=== PATIENT | female | born 1990 | race Caucasian/White ===

== ENCOUNTER 2020-06-22 08:33 | Emergency (ER) | payer SELFPAY ==
[2020-06-22] VITALS (8 sets, daily range): BP systolic 112–130; BP diastolic 72–87; PULSE 78–106; RESP 14–23; TEMP 36.9; O2SAT 97–100; BMI 18.8
--- NOTE | 2020-06-22 08:34 | ECG_ITS ---
[facility] Test Date: 2020-06-22 Pat Name: Chantal Chand Department: Room: Gender: Female Bioinformatics Assistant: NAZIA DESAIB: 1990 Requested By: Lily Sarmiento Order Number: [id number] James MD: Warren Rosenberg M.D. Measurements Intervals Burns Rate: 101 P: 30 MA: 109 QRS: 89 QRSD: 77 T: 47 QT: 306 QTc: 398 Interpretive Statements SINUS TACHYCARDIA WITH SHORT MA INTERVAL ABNORMAL RHYTHM ECG No previous ECG available for comparison Electronically Signed On 06-22-2020 16:43:34 SAMPLE WORKER by Warren Rosenberg M.D. [id number]
--- NOTE | 2020-06-22 08:35 | XR_ITS ---
WS: [id number] XR chest 1V portable [id number] REASON FOR EXAM: syncope FINDINGS: The heart and mediastinum are within normal limits. No active pulmonary parenchymal or pleural disease is noted. The bony thorax is intact. XR/XR chest 1V portable [id number] IMPRESSION: No acute chest abnormality.
--- NOTE | 2020-06-22 08:50 | W.ED.CHESTPA ---
HPI - Chest Pain General: Chief Complaint: Chest Pain Stated Complaint: chest pressure Time Seen by Provider: 06/22/20 08:36 Source: patient Mode of arrival: ambulatory Limitations: language barrier (Romanian) History of Present Illness: HPI narrative: 30-year-old female patient presents to the emergency department with, chest pressure states started Monday night, 06/20/2020 then went away, she reports spent the day yesterday shopping with return of symptoms last night. She denies fever cough or vomiting. Reports chills, denies exposure to individuals with recent illness. She reports has never experienced symptoms as today. She reports is constant, took herbal antianxiety pill will last night. She reports her grandfather gave it to her as it helps him. She reports relieved some of the pressure for a short time. She reports previous episode of similar symptoms when she had the stomach flu several years ago. She reports only lasted 1 day. LMP - current MD complaint: chest heaviness (pressure) Onset (ago): day(s) (2) Timing of current episode: episodic and increasing Prior episodes: No Onset: during rest Pain location: other (central) Pain radiation: none Severity: moderate Pain scale (0-10): 6 Quality: heaviness and other (pressure) Relieving factors: nothing Exacerbating factors: nothing Associated symptoms: Reports no associated symptoms, dyspnea and palpitations; Deny abdominal pain, diaphoresis, fever(s), nausea or vomiting Treatment prior to arrival: none Review of Systems General: Reports: 10 or more systems reviewed and unremarkable except in HPI and below Const: Reports: chills, fatigue and malaise; Denies: fever(s), body aches or diaphoresis Eyes: Denies: blurry vision or eye redness ENMT: Denies: throat pain, swelling of lips/tongue, dental pain, change in hearing or disequilibrium Card: Reports: chest pain, palpitations, lightheadedness (with ambulation) and dyspnea on exertion; Denies: irregular heart rhythm or swelling of feet/ankles Resp: Reports: dyspnea; Denies: productive cough, non-productive cough, wheezing, pain on inspiration or chest congestion GI: Denies: abdominal pain, nausea or vomiting : Denies: difficulty voiding or dysuria Musc: Denies: back pain Skin/Breast: Denies: rash or pruritus Neuro: Denies: headache(s), weakness in extremities or behavioral changes Psych: Reports: anxiety; Denies: depression or change in appetite Erickson/Lymph: Denies: easy bruising Physical Exam Const: COMMON NORMALS: no acute distress, patient oriented x3, healthy appearing and alert GENERAL APPEARANCE: cooperative, comfortable and well hydrated HENMT: COMMON NORMALS: normocephalic, Normal external nose present and moist oral mucous membranes HEAD & SCALP: normocephalic NOSE: Normal external nose present Eye: COMMON NORMALS: Equal, round and reactive pupils present and EOMs intact bilaterally GENERAL EYE: appearance normal, both eyes and all related structures PUPIL: Yes Equal, round and reactive pupils present Neck/C-Spine: COMMON NORMALS: full ROM and no lymphadenopathy GENERAL: Yes normal visual inspection and Yes trachea midline CERVICAL SPINE: Yes cervical ROM normal Lymph: LYMPHATIC: no lymphadenopathy noted Chest: COMMONS NORMALS: normal inspection of the chest Resp: COMMON NORMALS: normal respiratory effort and clear to auscultation bilaterally AUSCULTATION: clear to auscultation bilaterally Cardio: COMMON NORMALS: regular rhythm, S1 normal heart sound present and S2 normal heart sound present RHYTHM: regular rhythm HEART SOUNDS: S1 normal heart sound present and S2 normal heart sound present GI: COMMON NORMALS: Soft to palpation and non-tender INSPECTION: Yes normal to inspection PALPATION: Yes Soft to palpation : COMMON NORMALS: Yes no CVA tenderness BLADDER/KIDNEY EXAM: Yes no CVA tenderness Back/Pelvis: COMMON NORMALS: no CVA tenderness and thoracic and lumbar spine normal to inspection Extremity: COMMON NORMALS: normal to inspection and capillary refill normal Neuro: COMMON NORMALS: patient oriented x3 and no focal motor deficits SENSORIUM/ORIENTATION: Yes alert Psych: COMMON NORMALS: mental status grossly normal, Normal thought process present and cooperative ACTIVITY/MOTOR BEHAVIOR: Yes appropriate eye contact THOUGHT PROCESS: Normal thought process present Skin: COMMON NORMALS: no rashes or lesions noted and turgor normal GENERAL SKIN EXAM: no rashes or lesions noted and turgor normal Course ED course: 30-year-old female patient presents to the emergency department with complaints of chest pressure x24 hours. Cardiac work-up without abnormalities, EKG without abnormalities, CT chest with contrast without acute findings. Patient received Tylenol and Pepcid during her stay. She reports symptoms of chest pressure resolved, reports feeling better. ESR CRP negative, she did not experience cough or congestion/nausea, Covid symptoms. Will place on Pepcid twice daily, treat urinary tract infection, patient was advised to follow-up with a primary care physician next week to ensure she is improving. Consult to social welfare research worker to help with process. Agrees to return to emergency department if she develops worsening symptoms such as chest pain, difficulty breathing or other concerning symptoms. Patient was placed on collaborative physician during her stay, sinus rhythm with oxygen saturation 97-100%. 1 L normal saline bolus administered, heart rate did drop 15 points. Positive orthostatics prior to IV bolus. Advised to push fluids at home and rest. Vital Signs: Vital signs: Vital Signs Temperature 98.5 F 06/22/20 08:46 Pulse Rate 85 06/22/20 12:59 Respiratory Rate 18 06/22/20 12:59 Blood Pressure 123/74 06/22/20 12:59 Pulse Oximetry 97 06/22/20 12:59 MDM - Chest Pain Differential Diagnosis: Cardiac arrest differential diagnosis: Likely acute massive pulmonary embolism and acute myocardial infarction Lab Data: Labs: Lab Results 06/22/20 06/22/20 06/22/20 Range/Units 09:01 09:01 09:01 WBC 9.0 (4.0-10.0) 10^3/ uL RBC 5.43 H (4.1-5.3) 10^6/u L Hgb 14.0 (11.5-15.3) g/dL Hct 44.8 (37.0-47.0) % MCV 82.5 (81-99) fL MCH 25.8 L (28.0-34.0) pg MCHC 31.3 (30.0-36.0) g/dL RDW 15.1 (12.1-15.1) % Plt Count 284 (130-400) 10^3/c mm MPV 10.5 H (7.4-10.4) fL Neut % (Auto) 78.7 % Lymph % (Auto) 10.9 % Ritchie % (Auto) 9.9 % Eos % (Auto) 0.1 % Baso % (Auto) 0.2 % Neut # (Auto) 7.08 (1.8-7.7) 10^3/u L Lymph # (Auto) 1.0 (0.8-4.8) 10^3/u L Ritchie # (Auto) 0.9 (0.2-0.9) 10^3/u L Eos # (Auto) 0.0 (0.0-0.8) 10^3/u L Baso # (Auto) 0.0 (0.0-0.1) 10^3/u L Nucleated RBC % (a uto) 0 % Nucleated RBCs # 0.0 /100WBC ESR (0-15) mm/hr D-Dimer 0.62 H (0-0.59) ug/mIFE U Sodium 140 (136-145) mmol/L Potassium 3.8 (3.5-5.1) mmol/L Chloride 104 (98-107) mmol/L Carbon Dioxide 25 (22-29) mmol/L Anion Gap 14.8 (5-19) BUN 10 (6-20) mg/dL Creatinine 0.7 (0.5-0.9) mg/dL GFR Calculation 99.6 (90-130) mL/min Glucose 103 (65-115) mg/dL Calculated Osmolal ity 289 (285-295) mOsm/k g Calcium 9.4 (8.5-10.5) mg/dL Total Bilirubin 0.3 (0.15-1.2) mg/dL AST 17 (0-32) U/L ALT 12 (0-33) U/L Alkaline Phosphata se 61 (35-105) IU/L Troponin T Gen 5 n g/L (0-10) ng/L C-Reactive Protein 0.8 (0.0-4.9) mg/L Total Protein 7.7 (6.6-8.7) g/dL Albumin 4.6 (3.5-5.2) g/dL Globulin 3.1 (1.3-4.6) g/dL HCG, Qual (Negative) Urine Color (Yellow) Urine Appearance (CLEAR) Urine pH (5-7) Ur Specific Gravit y (1.005-1.030) Urine Protein (Negative) Urine Glucose (UA) (Normal) Urine Ketones (Negative) Urine Blood (Negative) Urine Nitrate (Negative) Urine Bilirubin (Negative) Urine Urobilinogen (Negative) mg/dL Ur Leukocyte Anastasia ase (Negative) Urine RBC (0-2) /hpf Urine WBC (0-5) /hpf Ur Squamous Epith Cells (0-5) /hpf Amorphous Sediment Urine Bacteria (NONE) /hpf 06/22/20 06/22/20 06/22/20 Range/Units 09:01 09:01 09:01 WBC (4.0-10.0) 10^3/ uL RBC (4.1-5.3) 10^6/u L Hgb (11.5-15.3) g/dL Hct (37.0-47.0) % MCV (81-99) fL MCH (28.0-34.0) pg MCHC (30.0-36.0) g/dL RDW (12.1-15.1) % Plt Count (130-400) 10^3/c mm MPV (7.4-10.4) fL Neut % (Auto) % Lymph % (Auto) % Ritchie % (Auto) % Eos % (Auto) % Baso % (Auto) % Neut # (Auto) (1.8-7.7) 10^3/u L Lymph # (Auto) (0.8-4.8) 10^3/u L Ritchie # (Auto) (0.2-0.9) 10^3/u L Eos # (Auto) (0.0-0.8) 10^3/u L Baso # (Auto) (0.0-0.1) 10^3/u L Nucleated RBC % (a uto) % Nucleated RBCs # /100WBC ESR 14 (0-15) mm/hr D-Dimer (0-0.59) ug/mIFE U Sodium (136-145) mmol/L Potassium (3.5-5.1) mmol/L Chloride (98-107) mmol/L Carbon Dioxide (22-29) mmol/L Anion Gap (5-19) BUN (6-20) mg/dL Creatinine (0.5-0.9) mg/dL GFR Calculation (90-130) mL/min Glucose (65-115) mg/dL Calculated Osmolal ity (285-295) mOsm/k g Calcium (8.5-10.5) mg/dL Total Bilirubin (0.15-1.2) mg/dL AST (0-32) U/L ALT (0-33) U/L Alkaline Phosphata se (35-105) IU/L Troponin T Gen 5 n g/L 6 (0-10) ng/L C-Reactive Protein (0.0-4.9) mg/L Total Protein (6.6-8.7) g/dL Albumin (3.5-5.2) g/dL Globulin (1.3-4.6) g/dL HCG, Qual Negative (Negative) Urine Color (Yellow) Urine Appearance (CLEAR) Urine pH (5-7) Ur Specific Gravit y (1.005-1.030) Urine Protein (Negative) Urine Glucose (UA) (Normal) Urine Ketones (Negative) Urine Blood (Negative) Urine Nitrate (Negative) Urine Bilirubin (Negative) Urine Urobilinogen (Negative) mg/dL Ur Leukocyte Anastasia ase (Negative) Urine RBC (0-2) /hpf Urine WBC (0-5) /hpf Ur Squamous Epith Cells (0-5) /hpf Amorphous Sediment Urine Bacteria (NONE) /hpf 11//20 Range/Units 10:00 WBC (4.0-10.0) 10^3/ uL RBC (4.1-5.3) 10^6/u L Hgb (11.5-15.3) g/dL Hct (37.0-47.0) % MCV (81-99) fL MCH (28.0-34.0) pg MCHC (30.0-36.0) g/dL RDW (12.1-15.1) % Plt Count (130-400) 10^3/c mm MPV (7.4-10.4) fL Neut % (Auto) % Lymph % (Auto) % Ritchie % (Auto) % Eos % (Auto) % Baso % (Auto) % Neut # (Auto) (1.8-7.7) 10^3/u L Lymph # (Auto) (0.8-4.8) 10^3/u L Ritchie # (Auto) (0.2-0.9) 10^3/u L Eos # (Auto) (0.0-0.8) 10^3/u L Baso # (Auto) (0.0-0.1) 10^3/u L Nucleated RBC % (a uto) % Nucleated RBCs # /100WBC ESR (0-15) mm/hr D-Dimer (0-0.59) ug/mIFE U Sodium (136-145) mmol/L Potassium (3.5-5.1) mmol/L Chloride (98-107) mmol/L Carbon Dioxide (22-29) mmol/L Anion Gap (5-19) BUN (6-20) mg/dL Creatinine (0.5-0.9) mg/dL GFR Calculation (90-130) mL/min Glucose (65-115) mg/dL Calculated Osmolal ity (285-295) mOsm/k g Calcium (8.5-10.5) mg/dL Total Bilirubin (0.15-1.2) mg/dL AST (0-32) U/L ALT (0-33) U/L Alkaline Phosphata se (35-105) IU/L Troponin T Gen 5 n g/L (0-10) ng/L C-Reactive Protein (0.0-4.9) mg/L Total Protein (6.6-8.7) g/dL Albumin (3.5-5.2) g/dL Globulin (1.3-4.6) g/dL HCG, Qual (Negative) Urine Color Kim (Yellow) Urine Appearance Cloudy (CLEAR) Urine pH 5 (5-7) Ur Specific Gravit y 1.020 (1.005-1.030) Urine Protein 1+ H (Negative) Urine Glucose (UA) Norm (Normal) Urine Ketones 1+ H (Negative) Urine Blood 3+ H (Negative) Urine Nitrate Negative (Negative) Urine Bilirubin 1+ H (Negative) Urine Urobilinogen 1 H (Negative) mg/dL Ur Leukocyte Anastasia ase Negative (Negative) Urine RBC >100 H (0-2) /hpf Urine WBC 5-10 H (0-5) /hpf Ur Squamous Epith Cells 0-4 H (0-5) /hpf Amorphous Sediment Not Reportable Urine Bacteria 2+ H (NONE) /hpf Discharge Plan Discharge Patient Disposition: Home Clinical Impression: Atypical chest pain, Acute epigastric pain UTI (urinary tract infection) Qualifiers: Urinary tract infection type: acute cystitis Hematuria presence: with hematuria Qualified Code(s): N30.01 - Acute cystitis with hematuria Condition: Stable Prescriptions: New Macrobid 100 mg capsule 100 mg PO BID 7 Days Qty: 14 RF: 0 Pepcid 20 mg tablet 20 mg PO BID Qty: 20 RF: 0 Discharge Orders: Discharge Order (Routine); Ordered 06/22/20 Ordered By: Lily Caal Discharge Activity: Limit activity as instructed Patient Instructions: Gastritis (ED), Urinary Tract Infection in Women (ED), Abdominal Pain (ED) Activity Restrictions/Additional Instructions: Avoid fried greasy fatty foods, this can worsen stomach upset Take Macrodantin, Macrobid until all gone, even if feeling better Return to the emergency department if you develop worsening symptoms such as abdominal pain, vomiting or fever Drink plenty of fluids, stay at home today and rest Clear liquid diet then advance as tolerated, eat small frequent meals, take antibiotics with food Follow-up with your primary care physician next week to ensure you are improving. Coding Level of Care Code ED Fingerer for Shannan Fwd Exam Comprehensive
[2020-06-22 09:27] LABS: Basophils % 0.2 %; Eosinophils % 0.1 %; Hematocrit 44.8 % (37.0-47.0); Lymphocytes % 10.9 %; Mean Corpuscular HGB Conc 31.3 g/dL (30.0-36.0); Mean Corpuscular Hemoglobin 25.8 pg (28.0-34.0); Mean Corpuscular Volume 82.5 fL (81-99); Mean Platelet Volume 10.5 fL (7.4-10.4); Monocytes # 0.9 10^3/uL (0.2-0.9); Monocytes % 9.9 %; Neutrophils # 7.08 10^3/uL (1.8-7.7); Neutrophils % 78.7 %; Nucleated Red Blood Cells % 0 %; Platelet Count 284 10^3/cmm (130-400); Red Blood Count 5.43 10^6/uL (4.1-5.3); Red Cell Distribution Width 15.1 % (12.1-15.1)
[2020-06-22 09:37] LABS: D Dimer 0.62 ug/mIFEU (0-0.59)
[2020-06-22 09:42] LABS: HCG, Serum Qual Negative (Negative)
[2020-06-22 09:43] LABS: Alanine Aminotransferase 12 U/L (0-33); Albumin Level 4.6 g/dL (3.5-5.2); Alkaline Phosphatase 61 IU/L (35-105); Anion Gap 14.8 (5-19); Aspartate Amino Transferase 17 U/L (0-32); Blood Urea Nitrogen 10 mg/dL (6-20); C Reactive Protein 0.8 mg/L (0.0-4.9); Calcium 9.4 mg/dL (8.5-10.5); Carbon Dioxide 25 mmol/L (22-29); Chloride 104 mmol/L (98-107); Globulin 3.1 g/dL (1.3-4.6); Glomerular Filtration Rate 99.6 mL/min (90-130); Glucose 103 mg/dL (65-115); Osmolality Calculated 289 mOsm/kg (285-295); Potassium 3.8 mmol/L (3.5-5.1); Sodium 140 mmol/L (136-145); Total Bilirubin 0.3 mg/dL (0.15-1.2); Total Protein 7.7 g/dL (6.6-8.7)
--- NOTE | 2020-06-22 09:46 | CT_ITS ---
WS: [id number] CT CHEST ANGIOGRAPHY WITH REFORMATS HISTORY: chest pressure, SOB TECHNIQUE: Contiguous axial images are obtained through the chest during arterial injection of intrav enous contrast. Images are reconstructed to evaluate the pulmonary arteries. MIP imaging also reviewe d. All CT scans at [facility] use at least one of these dose optimization techniques: aut omated exposure control; mA and/or kV adjustment per patient size (includes targeted exams where dose is matched to clinical indication); or iterative reconstruction. CONTRAST: Omnipaque 350; 95 mL IV. DLP: 356.49 mGy.cm COMPARISON: None available. Very good opacification of the pulmonary arteries. There is breathing motion artifact in the upper teo ng gu. There is an area of soft tissue thickening in a subsegmental branch of the LEFT upper lobe pulmonary artery which is in the area of the most significant breathing artifact. I do not believe t his is a pulmonary embolism. This would likely be asymptomatic if it were a pulmonary embolism. Tegan l size pulmonary artery. Normal aorta. Heart size is normal. No pericardial or pleural effusions. No pneumonia. No adenopathy. Upper thorax and chest wall are negative. Negative upper abdomen. No osseous destruction. CT/CT angio chest PE protcl [id number] IMPRESSION: 1. Study is limited by motion artifact in the upper lung gu. No central or significant pulmonary embolism identified. 2. No pneumonia.
[2020-06-22 10:21] LABS: Erythrocyte Sedimentation Rate 14 mm/hr (0-15)
[2020-06-22] MEDS: iohexol 350 mg/mL 100 mL Btl IV (10:27)
[2020-06-22] MEDS: sodium chloride 0.9% 1,000 ML 999 ML IV (10:29)
[2020-06-22 10:58] LABS: Glucose Urine UA Norm (Normal); Ketones Urine 1+ (Negative); Protein Urine 1+ (Negative); Urine Appearance Cloudy (CLEAR); Urine Color Amber (Yellow); pH Urine 5 (5-7)
[2020-06-22 10:59] LABS: Add Urine Culture? Yes; Add Urine Microscopic? YES; Bacteria Urine 2+ /hpf; Bilirubin Urine 1+ (Negative); Blood Urine 3+ (Negative); Leukocyte Esterase Urine Negative (Negative); Nitrate Urine Negative (Negative); RBC Urine >100 /hpf (0-2); Squamous Epithelial Cell Urine 0-4 /hpf (0-5); Urobilinogen Urine 1 mg/dL (Negative)
[2020-06-22] MEDS: famotidine 20 mg Tablet 40 MG PO (12:12)
[2020-06-22] MEDS: acetaminophen 500 mg Tablet 1000 MG PO (12:12)
[2020-06-22 12:22] LABS: Troponin T (5th) Once 6 ng/L (0-10)
--- NOTE | 2020-06-23 11:28 | DCPLANNER ---
manager field investigations had message to speak with patient about getting established with a primary care physician. manager field investigations called phone number [phone] this was a wrong number. Then correctional case records supervisor called patients phone [phone], a voicemail was left for patient to return transplant case manager phone call.
== END 2020-06-22 13:01 | disposition home or self-care (01) ==
PROVIDERS: Emergency Provider Nurse Practitioner Family
DX: R07.89 Other chest pain (principal); N30.01 Acute cystitis with hematuria; R10.13 Epigastric pain
CPT/HCPCS: 12345; 71045; 71275; 80053; 81001; 84484; 84703; 85025; 85378; 85651; 86140; 87086; 93005; 96360; 99282; 99284; J7040; Q9967

== ENCOUNTER → 2021-01-18 13:16 | Outpatient (BNVA) | payer OTHER, SELFPAY | PROVIDERS: Visit Provider Nurse Practitioner Family | DX: Z20.822 Contact with and (suspected) exposure to COVID-19 (principal) | CPT/HCPCS: 87635 ==

== ENCOUNTER 2021-11-12 09:27 | Outpatient (CLI) | payer MEDICAID, SELFPAY ==
[2021-11-12 09:20] VITALS: BMI 26.9
[2021-11-12 09:35] VITALS: BP 119/79; PULSE 96
[2021-11-12 09:50] VITALS: BP 123/86; PULSE 90
== END 2021-11-12 10:05 | disposition home or self-care (01) ==
LOC: OPOB 09:28 → OBGYN 09:29
PROVIDERS: PCP Family Medicine; Visit Provider Family Medicine
DX: O26.899 Other specified pregnancy related conditions, unspecified trimester (principal); Z3A.00 Weeks of gestation of pregnancy not specified
CPT/HCPCS: 99211

== ENCOUNTER 2021-11-19 10:22 | Outpatient (CLI) | payer MEDICAID, SELFPAY ==
[2021-11-19 10:41] VITALS: BP 125/83; PULSE 93
[2021-11-19 10:51] VITALS: RESP 18
[2021-11-19 10:52] VITALS: BMI 29.3
[2021-11-19 11:07] VITALS: BP 121/78; PULSE 85
--- NOTE | 2021-11-19 11:22 | PC.NURSE ---
Dr Valderrama wanted patient provided with information about kick counts. Patient does not speak much Moldovan, She has friend at bedside who does speak Moldovan, she was provided with information on kick counts and that if patient does not feel baby move 10 times in 2 hours and after drinking sugary juice to come in immediately for evaluation, patient told her friend that she understood.
== END 2021-11-19 11:20 | disposition home or self-care (01) ==
LOC: OPOB 10:31 → OBGYN 10:32
PROVIDERS: PCP Family Medicine; Visit Provider Family Medicine
DX: O36.5990 Maternal care for other known or suspected poor fetal growth, unspecified trimester, not applicable or unspecified (principal); Z3A.00 Weeks of gestation of pregnancy not specified
CPT/HCPCS: 59025

== ENCOUNTER 2021-11-23 00:59 | Inpatient (IN) | payer MEDICAID, SELFPAY ==
[2021-11-22] VITALS (41 sets, daily range): BP systolic 112–171; BP diastolic 59–87; PULSE 69–110; RESP 17; TEMP 36.6–36.7; O2SAT 99; BMI 29.8
[2021-11-22] MEDS: dextrose 5%-lactated ringers 1,000 ML 125 ML IV ×2 (14:53→22:30)
[2021-11-22] MEDS: oxytocin 30 UNIT/500 ML BAG IV (14:54)
[2021-11-22 15:07] LABS: Basophils % 0.3 %; Eosinophils % 0.1 %; Hematocrit 33.3 % (37.0-47.0); Hemoglobin 9.7 g/dL (11.5-15.3); Lymphocytes # 1.7 10^3/uL (0.8-4.8); Mean Corpuscular HGB Conc 29.1 g/dL (30.0-36.0); Mean Corpuscular Hemoglobin 21.9 pg (28.0-34.0); Mean Corpuscular Volume 75.2 fl (81-99); Mean Platelet Volume 11.1 fL (7.4-10.4); Monocytes # 1.2 10^3/uL (0.2-0.9); Monocytes % 8.5 %; Neutrophils # 10.89 10^3/uL (1.8-7.7); Neutrophils % 77.7 %; Nucleated Red Blood Cells % 0 %; Platelet Count 274 10^3/cmm (130-400); Red Blood Count 4.43 10^6/uL (4.1-5.3)
--- NOTE | 2021-11-22 19:40 | PC.NURSE ---
Contacted freelance interpreter/translator line through the pocketed spring machine operator. Hydro Generation Manager(Elise) helped the pt to confirm that she would like for her family member (Jigar) to be her freelance interpreter/translator throughout her stay.
[2021-11-22] MEDS: lactated ringers 1,000 ML 999 ML IV ×2 (22:45→23:21)
--- NOTE | 2021-11-22 23:45 | P.ANESUD_ITS ---
Pre-Anesthetic Update Pre-Anesthetic Assessment: Date of Surgery/Procedure: 11/22/21 Preop Mary gnosis: Planning of labor analgesia Any changes to Pre-Anesthetic Assessment?: No Last Intake: 12:30 Labs Last 48hrs: Short CBC 11/22/21 Range/Units 14:35 WBC 14.0 H (4.0-10.0) 10^3/ uL Hgb 9.7 L (11.5-15.3) g/dL Hct 33.3 L (37.0-47.0) % MCV 75.2 L (81-99) fl Plt Count 274 (130-400) 10^3/c mm Neut % (Auto) 77.7 % Neut # (Auto) 10.89 H (1.8-7.7) 10^3/u L Vitals: Pulse Rate 80 11/22/21 23:39 Respiratory Rate 17 11/22/21 14:15 Respiratory Effort Non-Labored 11/22/21 15:04 Respiratory Depth Normal 11/22/21 15:04 Respiratory Patter n 11/22/21 15:04 Blood Pressure 171/64 11/22/21 23:39 Pulse Oximetry 99 11/22/21 23:38 Oxygen Delivery Me thod 11/22/21 15:04 Exam: Pre-Anes Outpt Exam: alert, oriented x 3, clear to auscultation bilaterally and regular rate & rhythm Cardiac Studies: No Data to Display
--- NOTE | 2021-11-22 23:46 | P.ANES_ITS ---
Anesthesia Procedures Procedure/Date: 11/22/21 Epidural: Time Out Performed: Yes Consents Signed: Procedure Consent Consent: from patient, risks and benefits reviewed and patient agrees to proceed Lumbar Level: L3-L4 Epidural position: sitting Epidural procedure: sterile prep of area, 1% lidocaine to numb the area, 18 g needle, neg for parest hesia, test dose given, 1.5% xylocaine 1:200k epi (5cc), 0.2% Ropivacaine bolus ml (4cc and Fentanyl 100mcg), placed PCEA, no systemic response, sterile dressing applied, L.U.D. no apparent complications and 0.2% Ropiavacaine @ mls/hr (13cc/hour) Additional Comments: MESSI at 7cm. Pt tolerated well
[2021-11-23] VITALS (77 sets, daily range): BP systolic 97–157; BP diastolic 55–98; PULSE 67–148; RESP 16–17; TEMP 36.7–37.9; O2SAT 96–99
[2021-11-23] MEDS: ondansetron 2 mg/ML SDV 2 mL 4 MG IVP (06:35)
[2021-11-23] MEDS: citric acid-sodium citrate 30 mL UDC PO (12:39)
[2021-11-23] MEDS: famotidine 20 mg/2 mL INJ IVP (12:39)
[2021-11-23] MEDS: metoclopramide 5 mg/mL SDV 2 mL 10 MG IV (12:39)
--- NOTE | 2021-11-23 14:16 | PC.NURSE ---
in PACU, pt eyes closed, spouse and hourly sign language interpreter at bedside
--- NOTE | 2021-11-23 14:18 | PC.NURSE ---
In PACU, with spouse and ornamental metal erector
--- NOTE | 2021-11-23 16:17 | PC.NURSE ---
nurse took winter out right before pt started pushing at 0812. Nurse put a striaght catheter in pt at 1130 to empty bladder before the second round of pushing. Nurse put a new winter catheter in at 1242 before the section.
[2021-11-23] MEDS: ketorolac 30 mg/mL INJ IVP ×2 (16:23→22:02)
[2021-11-23] MEDS: dextrose 5%-lactated ringers 1,000 ML 125 ML IV (16:24)
--- NOTE | 2021-11-23 17:49 | P.ANESASSM_ITS ---
Pre-Anesthetic Assessment Height/Weight: Height 1.63 m Weight 78.925 kg Temp Pulse Resp BP Pulse Ox 99.0 F 91 16 143/83 97 11/23/21 16:31 11/23/21 16:31 11/23/21 16:31 11/23/21 16:31 11/23/21 16:31 Preop Diagnosis: Planning of labor analgesia Anesthetic Plan ASA status: 2 Anesthesia: Anesthesia Evaluation and Regional (specify below) (Epidural) Other: Late entry Patient seen prior to going to OR. Patient taken to OR emergently. Patient denies hx of complications with anesthesia, agrees to proceed. Risk of > 500 ml blood loss (7ml/kg in children): No Medications/Allergies Home Medications Medication Instructions Recorded Confirmed Last Taken Type famotidine 20 mg tablet (Pepcid) 20 mg PO BID #20 tab 06/22/20 11/22/21 Unknown Rx prenat 115-iron [id number] 1 tab PO DAILY 11/22/21 11/22/21 Unknown History Allergies Allergy/AdvReac Type Severity Reaction Status Date / Time No Known Allergies Allergy Verified 06/22/20 08:46 Current Medications Generic Name Dose Route Start Last Admin Trade Name Freq PRN Reason Stop Dose Admin Dextrose/Lactated Ringer's 1,000 mls @ 125 mls/hr 11/23/21 15:38 11/23/21 16 :24 Dextrose 5%-Lactated Ringers IV 125 mls/hr .Q8H NEHEMIAH Administration Ketorolac Tromethamine 30 mg 11/23/21 15:38 11/23/21 16:23 Ketorolac 30 Mg/Ml Inj IVP 11/24/21 09:39 30 mg Q6H NEHEMIAH Administration PFSH Anesthesia Social History Smoking and tobacco status: never smoked Alcohol intake: never Female Reproductive History : 1 Data Anesthesia : 11/22/21 14:35 Short CBC 11/22/21 Range/Units 14:35 WBC 14.0 H (4.0-10.0) 10^3/uL Hgb 9.7 L (11.5-15.3) g/dL Hct 33.3 L (37.0-47.0) % MCV 75.2 L (81-99) fl Plt Count 274 (130-400) 10^3/cmm Neut % (Auto) 77.7 % Neut # (Auto) 10.89 H (1.8-7.7) 10^3/uL Cardiac Studies: No Data to Display
--- NOTE | 2021-11-23 17:52 | ANE.PACU2 ---
Inpatient post-anesthesia follow up: Airway intact: Yes Vital signs: Temperature 99.0 F Pulse Rate 91 Respiratory Rate 16 Blood Pressure 143/83 Pulse Oximetry 97 Oxygen Delivery Me thod Room Air Oxygen Flow Rate Fraction of Inspir ed Oxygen Hydration adequate: Yes Nausea and vomiting: No Pain level: 3 Mental status: Baseline
[2021-11-23] MEDS: HYDROcodone-acetaminophen 5-325 mg Tablet PO (22:53)
[2021-11-24] MEDS: dextrose 5%-lactated ringers 1,000 ML 125 ML IV (00:35)
[2021-11-24 03:12] LABS: Hematocrit 24.1 % (37.0-47.0); Hemoglobin 7.2 g/dL (11.5-15.3); Mean Corpuscular HGB Conc 29.9 g/dL (30.0-36.0); Mean Corpuscular Hemoglobin 22.3 pg (28.0-34.0); Mean Corpuscular Volume 74.6 fl (81-99); Mean Platelet Volume 11.2 fL (7.4-10.4); Platelet Count 186 10^3/cmm (130-400); Red Blood Count 3.23 10^6/uL (4.1-5.3); Red Cell Distribution Width 16.3 % (12.1-15.1); White Blood Count 21.8 10^3/uL (4.0-10.0)
[2021-11-24 03:30] VITALS: BP 120/71; PULSE 75; RESP 16; TEMP 36.8; O2SAT 97
[2021-11-24] MEDS: ketorolac 30 mg/mL INJ IVP (05:34)
[2021-11-24] MEDS: prenatal vitamin Capsule 1 CAP PO (09:15)
[2021-11-24] MEDS: docusate sodium 100 mg Capsule PO ×2 (09:15→17:09)
[2021-11-24] MEDS: ferrous sulfate EC 325 mg Tablet PO ×2 (09:15→17:09)
[2021-11-24 09:45] VITALS: BP 129/80; PULSE 81; RESP 16; TEMP 36.7; O2SAT 99
[2021-11-24] MEDS: HYDROcodone-acetaminophen 5-325 mg Tablet PO ×3 (11:57→23:16)
[2021-11-24 17:00] VITALS: BP 133/86; PULSE 78; RESP 16; TEMP 36.8; O2SAT 97
--- NOTE | 2021-11-24 17:03 | P.OP_ITS ---
Operative Report Date of procedure: November 24, 2021 Pre-op diagnosis: Failure to descend Post-op diagnosis: Failure to descend Procedure done: Primary low transverse section Specimens removed/disposition: Vertex male Surgeon: Evelia Valderrama MD Estimated blood loss: 600 mL Urine output: 100 mL initially bloody, then clear Brief History: This is a 31-year-old G1, P0 at 40 weeks 3 days gestation who was admitted for postdate induction. Her was complicated by growth restriction with abdominal circumference less than 5th percentile. She made it to complete and pushing but after pushing for 3 hours there was no descent of the head which remained at 0 to +1 station. There was a significant amount of caput and maternal exhaustion so decision was made to proceed with section. With the monitor in place I gently pushed the head back to 0 station. Procedure: After informed consent the patient was taken to the OR where her epidural anesthesia was augmented. She was prepped and draped in normal sterile fashion in dorsal supine position with a left lateral tilt. A Pfannenstiel skin incision was made and carried through to the underlying layer of fascia sharply. There were 3 brisk bleeders in the subcutaneous tissue that were grasped with a hemostat and coagulated using the Bovie. The fascia was then entered sharply with the scalpel. The fascial incision was extended laterally using the Mayos. The fascia was grasped with Garrick clamps and the underlying rectus muscles were dissected off taking care to avoid injury to the underlying tissue. The peritoneum was entered bluntly using a hemostat. The incision site was manually stretched. The bladder blade was inserted and the vesicouterine peritoneum was identified and entered sharply using the Metzenbaums. The bladder flap was then created digitally. The bladder blade was then reinserted. Uterine incision was made in a transverse fashion in the lower uterine segment. Amniotic rupture of membranes was performed sharply with clear fluid. The infant was in straight OP position. The head was wedged down in the pelvis and it took several attempts to break the suction and rotate the head out of the naif pelvis. The was suctioned at delivery and the cord was clamped and cut. The was handed to the waiting pediatric nurse. The placenta was delivered grossly intact and normal to inspection using fundal pressure. The uterus was then exte riorized from the abdomen and a dry sponge was used to clear the uterus of clots and debris. Surprisingly there was no extension of the uterine incision. the uterine incision was repaired using 0 chromic in a running locked fashion. A second layer of the same suture was used in an imbricating manner. There was a small amount of bleeding from the right lateral aspect and a [id number] suture of 0 chromic was used with good hemostasis obtained. The uterus was then returned to the abdomen and irrigation was used to clear the gutters of clots and debris. The uterine incision was reinspected for hemostasis. It was noted that there was blood in the urine and I performed a careful inspection of the bladder area. The Milligan bulb was palpable within the bladder and there were no visible defects. Nursing injected saline into the bladder through her catheter and it distended appropriately. Nursing then removed the saline and it was noted to be clear. The peritoneum was then reapproximated using 4-0 Vicryl in a running fashion. The fascia was then reapproximated using 0 Vicryl in a running fashion. The subcutaneous tissue was inspected for any small bleeders that were coagulated using the Bovie. The subcutaneous tissue was then reapproximated using 4-0 Vicryl in a running fashion. The skin was then reapproximated using 4-0 Vicryl in a running fashion with a Kuldeep needle. Steri-Strips and a pressure bandage were applied and patient went to recovery in good condition. Sponge instrument and needle counts were correct.
--- NOTE | 2021-11-24 17:29 | PM.PN ---
Subjective Subjective: She has been ambulating in the hallways. She has passed flatus and is tolerating a regular diet. Her pain seems controlled. Vitals/I&O/Wt Last Vital Signs Temp 98.1 F 11/24/21 09:45 Pulse 81 11/24/21 09:45 Resp 16 11/24/21 09:45 BP 129/80 11/24/21 09:45 Pulse Ox 99 11/24/21 09:45 11/24/21 11/24/21 11/24/21 06:59 14:59 22:59 Intake Total 1000 / 1050 Output Total 425 / 730 600 / 600 Balance 575 / 320 -600 / -600 Physical Exam Narrative: Alert and oriented, sitting up in bed, abdomen is soft with appropriate postoperative tenderness, incision is clean dry and intact with Steri-Strips in place, extremities have no calf tenderness and no edema Urinary Catheter Management: Milligan Latex: Cath Placed During This Visit: yes, but has since been removed by the nurse Reason for Continuing Indwelling Catheter: Decision to DC Catheter Urinary Catheter Date of Insertion: 11/23/21 Urinary Catheter Time of Insertion: 12:42 Date Urinary Catheter Removed: 11/24/21 Time Urinary Catheter Discontinued: 13:00 Data : 11/24/21 03:05 A&P Assessment and plan (1) Status post primary low transverse section: Routine postoperative care Status: Acute Attestations Medical Necessity Statement*: Routine and post Coding Level of Care Code Acute Photography Instructor for Maureeng Alis Diagnoses Status post primary low transverse section Z98.891
[2021-11-24 21:40] VITALS: BP 117/76; PULSE 76; RESP 19; TEMP 36.8; O2SAT 98
[2021-11-24] MEDS: ibuprofen 800 mg tablet PO (22:22)
[2021-11-25 03:28] VITALS: BP 124/78; PULSE 72; RESP 17; TEMP 36.4; O2SAT 98
[2021-11-25] MEDS: HYDROcodone-acetaminophen 5-325 mg Tablet PO ×2 (06:30→15:40)
[2021-11-25 08:45] VITALS: BP 131/82; PULSE 118; RESP 16; TEMP 36.7
[2021-11-25] MEDS: ibuprofen 800 mg tablet PO (15:40)
[2021-11-25 16:30] VITALS: BP 143/85; PULSE 128; RESP 16; TEMP 37
--- NOTE | 2021-11-25 17:39 | P.DS_ITS ---
Discharge Providers Date of Admission: 11/23/21 00:59 Date of Discharge: December 06, 2021 Attending Provider at Admission: Evelia Valderrama MD Attending Provider at Discharge: Evelia Valderrama MD Primary Care Provider: Evelia Valderrama MD Diagnoses at Discharge Discharge Diagnosis (1) Status post primary low transverse section: Status: Acute Reason for Visit Reason for Visit: Induction Hospital Course Hospital Course This is a 31-year-old G1 now P1 who was admitted for induction at 40 weeks 2 days gestation. She got to complete and pushing for 3 hours with failure to descend. She then had a primary section of a viable male infant. Mother and infant did well after delivery. On day #2 she was ambulating, tolerating a regular diet, had good pain control and was comfortable with discharge home. Physical Exam Narrative: Alert and oriented, sitting up in bed, abdomen is soft with appropriate postoperative tenderness, Steri-Strips are clean dry and intact, extremities have edema but no calf tenderness. Urinary Catheter Management: Milligan Latex: Cath Placed During This Visit: yes, but has since been removed by the nurse Reason for Continuing Indwelling Catheter: Decision to DC Catheter Urinary Catheter Date of Insertion: 11/23/21 Urinary Catheter Time of Insertion: 12:42 Date Urinary Catheter Removed: 11/24/21 Time Urinary Catheter Discontinued: 13:00 Discharge Data Studies Completed and Pending Laboratory Results WBC 21.8 10^3/uL (4.0-10.0) H 11/24/21 03:05 RBC 3.23 10^6/uL (4.1-5.3) L 11/24/21 03:05 Hgb 7.2 g/dL (11.5-15.3) L 11/24/21 03:05 Hct 24.1 % (37.0-47.0) L 11/24/21 03:05 MCV 74.6 fl (81-99) L 11/24/21 03:05 MCH 22.3 pg (28.0-34.0) L 11/24/21 03:05 MCHC 29.9 g/dL (30.0-36.0) L 11/24/21 03:05 RDW 16.3 % (12.1-15.1) H 11/24/21 03:05 Plt Count 186 10^3/cmm (130-400) 11/24/21 03:05 MPV 11.2 fL (7.4-10.4) H 11/24/21 03:05 Neut % (Auto) 77.7 % 11/22/21 14:35 Lymph % (Auto) 12.0 % 11/22/21 14:35 [place] % (Auto) 8.5 % 11/22/21 14:35 Eos % (Auto) 0.1 % 11/22/21 14:35 Baso % (Auto) 0.3 % 11/22/21 14:35 Neut # (Auto) 10.89 10^3/uL (1.8-7.7) H 11/22/21 14:35 Lymph # (Auto) 1.7 10^3/uL (0.8-4.8) 11/22/21 14:35 [place] # (Auto) 1.2 10^3/uL (0.2-0.9) H 11/22/21 14:35 Eos # (Auto) 0.0 10^3/uL (0.0-0.8) 11/22/21 14:35 Baso # (Auto) 0.0 10^3/uL (0.0-0.1) 11/22/21 14:35 Nucleated RBC % (auto) 0 % 11/22/21 14:35 Nucleated RBCs # 0.0 /100WBC 11/22/21 14:35 Vitals Last Vital Signs Temp 98.6 F 11/25/21 16:30 Pulse 128 H 11/25/21 16:30 Resp 16 11/25/21 16:30 BP 143/85 11/25/21 16:30 Pulse Ox 98 11/25/21 03:28 Discharge Plan Discharge Patient Disposition: Home Condition: Stable Prescriptions: New ibuprofen 800 mg Tablet 800 mg PO TID PRN (Reason: Abdominal Discomfort) Qty: 40 0RF hydrocodone-acetaminophen 5-325 mg Tablet 1 - 2 tab PO Q4H PRN (Reason: Moderate To Severe Pain) Qty: 20 0RF docusate sodium 100 mg Capsule 100 mg PO BID Qty: 60 0RF ferrous sulfate 325 mg (65 mg iron) Tablet,Delayed Release (Dr/Ec) 325 mg PO DAILY Qty: 30 0RF Continued famotidine [Pepcid] 20 mg tablet 20 mg PO BID Qty: 20 0RF Rx Instructions: take 1 PO BID 20 minutes ac meals for 10 days prenat 115-iron [id number] 1 tab PO DAILY 0RF Discharge Orders: Discharge Order (Routine); Ordered 11/25/21 Ordered By: Evelia Valderrama Referrals: Evelia Valderrama MD [Primary Care Provider] - 11/29/21 3:15 pm (Monday) Discharge Diet: Usual diet Discharge Activity: Limit activity as instructed Patient Instructions: Depression (DC), Bleeding (DC), Preeclampsia and Eclampsia After Delivery (GEN), OB - Karrie/Jannie, OB Discharge Report, OB Food/Drug Interaction Guide, Opioid Safety, OB Home Care Discharge Attestations Time Spent in Discharge Care*: less than 30 min Quality Metrics Clinical Quality Measures [ No reported AMI, CVA or VTE this stay] Coding Level of Care Code Acute Chg FW DC note Diagnoses Status post primary low transverse section Z98.891
--- NOTE | 2021-12-08 11:20 | PM.OPHPUD ---
Labor & Delivery H&P Update Date of Procedure: November 22, 2021 Date H&P Performed: 11/22/21 Admission Diagnosis: IUP at 40 weeks 2 days gestation growth restriction by abdominal circumference Preop diagnosis: induction of labor Planned procedure: Expectant managment of labor
== END 2021-11-25 17:40 | disposition home or self-care (01) | DRG 788 ==
LOC: OPOB 01:00 → OBGYN 01:00
PROVIDERS: Admitting Provider Family Medicine; PCP Family Medicine; Visit Provider Family Medicine
PROC: 3E033VJ Introduction of Other Hormone into Peripheral Vein, Percutaneous Approach (ICD-10-PCS; CPT 59514; principal; 2021-11-23 12:40)
DX: O64.8XX0 Obstructed labor due to other malposition and malpresentation, not applicable or unspecified (principal); Z3A.40 40 weeks gestation of pregnancy; Z37.0 Single live birth; O75.81 Maternal exhaustion complicating labor and delivery; O61.0 Failed medical induction of labor; O48.0 Post-term pregnancy
CPT/HCPCS: 36415; 51702; 83986; 85025; 85027; J1885; J2274; J2405; J2765; J2795; J3010; J3490; J7030